=== PATIENT | female | born 1970 | race American Indian/Alaskan Native ===

== ENCOUNTER 2018-04-16 07:42 | Emergency (ER) | payer SELFPAY ==
--- NOTE | 2018-04-16 08:25 | C.PDOC ---
History Of Present Illness 47 year old female presents to the ED complaining of coughing with associated pleuritic chest pain radiating to her back ongoing for 4 days. She also notes fever of 102 last night. 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 She denies any sick contacts. She denies any SOB, nausea, vomiting, throat pain, ear pain, or any other symptoms. Time Seen by Provider: 04/16/18 07:45 Chief Complaint (Nursing): Cough, Cold, Congestion History Per: Patient History/Exam Limitations: no limitations Onset/Duration Of Symptoms: Days Current Symptoms Are (Timing): Still Present Sick Contacts (Context): None Associated Symptoms: Fever, Cough. denies: Sore Throat Past Medical History Reviewed: Historical Data, Nursing Documentation, Vital Signs Vital Signs: Last Vital Signs Temp 97.7 F 04/16/18 09:48 Pulse 74 04/16/18 09:48 Resp 20 04/16/18 09:48 BP 112/75 04/16/18 09:48 Pulse Ox 98 04/16/18 11:38 - Medical History PMH: Bronchitis Surgical History: Family History: States: No Known Family Hx - Social History Hx Alcohol Use: Yes Hx Substance Use: No - Immunization History Hx Tetanus Toxoid Vaccination: No Hx Influenza Vaccination: No Hx Pneumococcal Vaccination: No Review Of Systems Except As Marked, All Systems Reviewed And Found Negative. Constitutional: Positive for: Fever ENT: Negative for: Ear Pain, Throat Pain Cardiovascular: Positive for: Chest Pain Respiratory: Positive for: Cough. Negative for: Shortness of Breath Gastrointestinal: Negative for: Nausea, Vomiting Musculoskeletal: Positive for: Back Pain Physical Exam - Physical Exam Appears: Non-toxic, No Acute Distress Skin: Warm, Dry Head: Normacephalic Eye(s): bilateral: Normal Inspection, PERRL, EOMI Ear(s): Bilateral: Normal Nose: Normal Oral Mucosa: Moist Throat: Normal, No Erythema, No Exudate, No Drooling Neck: Supple Chest: Symmetrical Cardiovascular: Rhythm Regular, No Murmur Respiratory: Normal Breath Sounds, No Rales, No Rhonchi, No Wheezing Extremity: Normal ROM Extremity: Bilateral: Atraumatic Neurological/Psych: Oriented x3, Normal Speech Gait: Steady ED Course And Treatment ECG: Interpreted By Me, Viewed By Me ECG Rhythm: Sinus Rhythm ECG Interpretation: Normal Rate From EC O2 Sat by Pulse Oximetry: 98 (RA) Pulse Ox Interpretation: Normal - Other Rad CXR X-Ray: Viewed By Me, Read By Radiologist Interpretation: Accession No. : [id number]. Patient Name / ID : ANTONINA PADILLA / [id number]. Exam Date : 04/16/2018 08:34:08 ( Approved ). Study Comment : Sex / Age : F / 47Y. Creator : Omar Garcia MD. Dictator : Omar Garcia MD. Meter Reading Clerk : Research Lab Assistant : Omar Garcia MD. Approver2 : Report Date : 04/16/2018 11:44:57. My Comment : . Chest x- ray two views. History: Chest pain. Fever. Comparison: None available. Findings: Mild venous congestion. Bibasilar breast and nipple shadows. Biapical pleural thickening with upper lobe granulomatous changes. Heart size within normal limits. Degenerative changes in the spine. Impression: Mild venous congestion. Bibasilar breast and nipple shadows. Biapical pleural thickening with upper lobe granulomatous changes. Heart size within normal limits. Degenerative changes in the spine. Medical Decision Making Medical Decision Making: Orders: -CXR On revaluation, patient is resting comfortably, and is in no acute distress. Patient was instructed to follow up with PMD in 1-2 days for further evaluation. Patient given Rx for Zithromax, Claritin, and Prednisone. Disposition - Disposition Referrals: [facility] at [facility] [Outside] Disposition: HOME/ ROUTINE Disposition Time: 09:40 Condition: GOOD Additional Instructions: Follow up with the medical doctor within 1-2 days. return if worsened. Prescriptions: Azithromycin [Zithromax] 250 mg PO DAILY #4 tab Loratadine [Claritin] 10 mg PO DAILY #10 tab predniSONE [Prednisone] 10 mg PO BID #10 tab Instructions: Acute Bronchitis Forms: [employer] (Yi) - Clinical Impression Clinical Impression: Bronchitis - PA / WRINGER AND SETTER / Resident Statement MD/DO has reviewed & agrees with the documentation as recorded. - Scribe Statement The provider has reviewed the documentation as recorded by the Scribe Jacquelin Suero All medical record entries made by the Scribe were at my direction and personally dictated by me. I have reviewed the chart and agree that the record accurately reflects my personal performance of the history, physical exam, medical decision making, and the department course for this patient. I have also personally directed, reviewed, and agree with the discharge instructions and disposition.
[2018-04-16 09:49] VITALS: BP 112/75; PULSE 74; RESP 20; TEMP 97.7
[2018-04-16 10:02] VITALS: O2SAT 98
--- NOTE | 2018-04-16 11:46 | RAD ---
Chest x-ray two views History: Chest pain. Fever. Comparison: None available. Findings: Mild venous congestion. Bibasilar breast and nipple shadows. Biapical pleural thickening with upper lobe granulomatous changes. Heart size within normal limits. Degenerative changes in the spine. Impression: Mild venous congestion. Bibasilar breast and nipple shadows. Biapical pleural thickening with upper lobe granulomatous changes. Heart size within normal limits. Degenerative changes in the spine.
--- NOTE | 2018-04-17 12:36 | CARD ---
APPROVED REPORT Date of service: 04/16/2018 EKG Measurement Heart [id number] <Conclusion> Normal sinus rhythm Normal ECG
== END 2018-04-16 09:52 | disposition home or self-care (01) ==
LOC: C.ER 07:42
DX: J40 Bronchitis, not specified as acute or chronic (principal)

== ENCOUNTER 2018-05-22 17:55 | Emergency (ER) | payer SELFPAY ==
[2018-05-22 18:08] VITALS: BP 118/84; PULSE 79; RESP 18; TEMP 98.9; O2SAT 99
--- NOTE | 2018-05-22 18:51 | C.PDOC ---
History Of Present Illness 47 year old female presents to ED for evaluation of left hip pain s/p fall onto concrete floor at work 1 week ago. Patient reports numbness, tingling and prior lumbar X-ray. Reports taking Ibuprofen 800mg and Flexeril 10mg with no improvement. Notes she does not like how the medication makes her feel. Denies fever, nausea, vomiting, dizziness, and other associated symptoms. Time Seen by Provider: 05/22/18 18:13 Chief Complaint (Nursing): Lower Extremity Problem/Injury History Per: Patient History/Exam Limitations: no limitations Onset/Duration Of Symptoms: Days Current Symptoms Are (Timing): Still Present Past Medical History Reviewed: Historical Data, Nursing Documentation, Vital Signs Vital Signs: Last Vital Signs Temp 98.9 F 05/22/18 18:06 Pulse 79 05/22/18 18:06 Resp 18 05/22/18 19:04 BP 118/84 05/22/18 18:06 Pulse Ox 99 05/22/18 20:55 - Medical History PMH: Bronchitis Surgical History: Family History: States: Unknown Family Hx - Social History Hx Alcohol Use: Yes Hx Substance Use: No - Immunization History Hx Tetanus Toxoid Vaccination: No Hx Influenza Vaccination: No Hx Pneumococcal Vaccination: No Review Of Systems Constitutional: Negative for: Fever, Chills Gastrointestinal: Negative for: Nausea, Vomiting Musculoskeletal: Positive for: Other (left hip pain ) Neurological: Positive for: Weakness, Numbness Physical Exam - Physical Exam Appears: Non-toxic, No Acute Distress, Other (comfortable) Skin: Warm, Dry Head: Atraumatic, Normacephalic Chest: Symmetrical, No Deformity Cardiovascular: Rhythm Regular, No Murmur Respiratory: Normal Breath Sounds, No Rales, No Rhonchi, No Stridor Back: Paraspinal Tenderness (left lumbar) Extremity: Tenderness (To palpation on left lateral thigh. ), Capillary Refill ( less than 2 seconds), No Deformity, Other (No deficit or ecchymosis to the left hip. ) Neurological/Psych: Oriented x3, Normal Speech, Normal Motor, Normal Sensation Gait: Steady ED Course And Treatment O2 Sat by Pulse Oximetry: 99 (RA) Pulse Ox Interpretation: Normal Progress Note: Left Hip X-ray and Left Femur X-ray. Patient stable for discharge home. Prescribed Cyclobenzaprine and Ibuprofen. Advised to follow up with PMD as needed. Disposition - Disposition Disposition: HOME/ ROUTINE Disposition Time: 19:00 Condition: STABLE Additional Instructions: CONTINUE YOUR MEDICATIONS NEEDED FOLLOW UP WITH YOUR DOCTOR IN 1-2 DAYS HAVE OUTPATIENT MRI OF YOUR LUMBAR SPINE IF SYMPTOMS PERSIST RETURN TO ER IF SYMPTOMS WORSEN Instructions: Radiculopathy (DC) Forms: [employer] (Hebrew) Print Language: [place] - POA Present On Arrival: None - Clinical Impression Clinical Impression: Lumbar radiculopathy, Contusion, thigh - Scribe Statement The provider has reviewed the documentation as recorded by the Scribe (Genet Lizarraga) Provider Attestation: All medical record entries made by the Scribe were at my direction and personally dictated by me. I have reviewed the chart and agree that the record accurately reflects my personal performance of the history, physical exam, medical decision making, and the department course for this patient. I have also personally directed, reviewed, and agree with the discharge instructions and disposition.
--- NOTE | 2018-05-23 08:13 | RAD ---
Date of service: 05/22/2018 PROCEDURE: LEFT HIP WITH PELVIS RADIOGRAPHS HISTORY: LEFT HIP PAIN AFTER FALL COMPARISON: None available. TECHNIQUE: Frontal views of the pelvis and bilateral hips of been submitted with frog-leg lateral view left hip joint. FINDINGS: Pelvic ring appears intact without fracture as well as the left hip joint. No dislocation of the left hip joint. No destructive bony lesion throughout left hip joint and pelvic ring. Pubic symphysis appears intact. Limited degenerative changes seen the bilateral sacroiliac and hip joints symmetrically. A bone island is identified at the right superior pubic ramus proximally. IMPRESSION: No acute fracture or dislocation left hip joint. No fracture throughout the pelvic ring. Degenerative changes bilateral sacroiliac and hip joint.
--- NOTE | 2018-05-23 08:14 | RAD ---
Date of service: 05/22/2018 PROCEDURE: Left Femur Radiographs. HISTORY: LEFT FEMUR PAIN AFTER FALL COMPARISON: None. TECHNIQUE: AP and Lateral Radiographs of the left femur. FINDINGS: FEMUR: No acute fracture or destructive bony lesion identified. SOFT TISSUES: Normal. OTHER FINDINGS: None. IMPRESSION: Unremarkable radiographs of the left femur.
== END 2018-05-22 19:05 | disposition home or self-care (01) ==
LOC: C.ER 17:55
DX: M54.16 Radiculopathy, lumbar region (principal); S70.12XA Contusion of left thigh, initial encounter; W18.30XA Fall on same level, unspecified, initial encounter; Y92.89 Other specified places as the place of occurrence of the external cause; Y99.0 Civilian activity done for income or pay

== ENCOUNTER 2018-11-16 17:21 | Emergency (ER) | payer MEDICAID ==
[2018-11-16 17:28] VITALS: BMI 36.1
[2018-11-16 17:31] VITALS: TEMP 98.2
--- NOTE | 2018-11-16 18:24 | C.PDOC ---
History Of Present Illness 48 y/o female, with family history of DVTs, comes in to ED complaining of right lower leg swelling, right knee pain, and right hip pain x2 weeks. She denies any trauma to the area and states that one day she just noticed that her right knee was painful in the back. She admits to occasional swelling at night, as well as cramping of the leg. States the pain starts at the hip and radiates down to the knee and lower leg. Denies recent travel or sedentary lifestyle. She rates the pain 7/10. Patient reports she took aleve and tylenol in the past with little improvement. She denies any fever, chills, SOB, or chest pain. Chief Complaint (Nursing): Lower Extremity Problem/Injury History Per: Patient History/Exam Limitations: no limitations Onset/Duration Of Symptoms: Days Current Symptoms Are (Timing): Still Present Past Medical History Reviewed: Historical Data, Nursing Documentation, Vital Signs Vital Signs: Last Vital Signs Temp 98.2 F 11/16/18 17:28 Pulse 69 11/16/18 17:28 Resp 18 11/16/18 17:28 BP 128/86 11/16/18 17:28 Pulse Ox 98 11/16/18 17:28 - Medical History PMH: Bronchitis Surgical History: Family History: States: Other - Social History Hx Alcohol Use: No Hx Substance Use: No - Immunization History Hx Tetanus Toxoid Vaccination: No Hx Influenza Vaccination: No Hx Pneumococcal Vaccination: No Review Of Systems Constitutional: Negative for: Fever, Chills Cardiovascular: Negative for: Chest Pain Respiratory: Negative for: Cough, Shortness of Breath Gastrointestinal: Negative for: Nausea, Vomiting, Abdominal Pain, Diarrhea Genitourinary: Negative for: Dysuria Musculoskeletal: Positive for: Other (Right lower leg swelling, right knee pain, and right hip pain) Skin: Negative for: Rash Neurological: Negative for: Weakness, Numbness Physical Exam - Physical Exam Appears: Non-toxic, No Acute Distress Skin: Warm, Dry Head: Atraumatic, Normacephalic Eye(s): bilateral: Normal Inspection, PERRL Oral Mucosa: Moist Neck: Supple Chest: Symmetrical Cardiovascular: Rhythm Regular, No Murmur Respiratory: Normal Breath Sounds, No Rales, No Rhonchi, No Wheezing Gastrointestinal/Abdominal: Soft, No Tenderness Extremity: Normal ROM (of all joints of right leg), No Pedal Edema, Capillary Refill (less than 2 seconds), Other (right knee slightly edematous, no erythema, neurovascularly intact) Extremity: Bilateral: Atraumatic Pulses: Left Dorsalis Pedis: Normal, Right Dorsalis Pedis: Normal Neurological/Psych: Oriented x3, Normal Speech, Normal Motor, Normal Sensation Gait: Steady ED Course And Treatment - Laboratory Results Result Diagrams: 11/16/18 18:58 11/16/18 18:58 O2 Sat by Pulse Oximetry: 98 (RA) Pulse Ox Interpretation: Normal Medical Decision Making Medical Decision Making: Plan: --Labs --Knee XR --Hip XR --Venous Duplex Scan --Tylenol PO Doppler neg, XR unremarkable. Reports not dictated as of yet by radiologist. Discussed case with Dr. Guerrero and agrees patient could be discharged based on preliminary results. Patient will follow up with her PMD in 1-2 days. Patient will continue naproxen twice a day and was advised to return to ED if symptoms worsen. Patient verbalizes understanding and is in agreement with plan. Patient is stable for discharge. Disposition Counseled Patient/Family Regarding: Studies Performed, Diagnosis, Need For Followup, Rx Given - Disposition Referrals: [facility] [Outside] Disposition: HOME/ ROUTINE Disposition Time: 20:24 Condition: STABLE Additional Instructions: VALERIE SARKAR, thank you for letting us take care of you today. Your provider was Mark Norton/Timothy Vizcarra and you were treated for Leg Pain. The emergency medical care you received today was directed at your acute symptoms. If you were prescribed any medication, please fill it and take as directed. It may take several days for your symptoms to resolve. Return to the Emergency Department if your symptoms worsen, do not improve, or if you have any other problems. Please contact your doctor or call one of the physicians/clinics you have been referred to that are listed on the Patient Visit Information form that is included in your discharge packet. Bring any paperwork you were given at discharge with you along with any medications you are taking to your follow up visit. Our treatment cannot replace ongoing medical care by a primary care provider outside of the emergency department. Thank you for allowing the [facility] team to be part of your care today. If you had an X-Ray or CT scan: A Radiologist will review the ED reading if any change in treatment is needed we will contact you. Prescriptions: Naproxen [Naprosyn] 500 mg PO BID #30 tablet Instructions: Muscle Strain (DC), Knee Pain (DC), Joint Pain Forms: [employer] (Chinese) - Clinical Impression Clinical Impression: Knee pain, right, Right hip pain, Muscle strain - PA / EMERGENCY DEPARTMENT RN / Resident Statement MD/DO has reviewed & agrees with the documentation as recorded. - Scribe Statement The provider has reviewed the documentation as recorded by the Scribtani Baker All medical record entries made by the Julioibtani were at my direction and personally dictated by me. I have reviewed the chart and agree that the record accurately reflects my personal performance of the history, physical exam, medical decision making, and the department course for this patient. I have also personally directed, reviewed, and agree with the discharge instructions and disposition.
[2018-11-16 19:05] LABS: BASO % 0.7 % (0.0-2.0); EOS # 0.1 K/uL (0.0-0.7); EOS % 0.9 % (0.0-4.0); HEMOGLOBIN 11.8 g/dL (11.0-16.0); LYMPH # 2.3 K/uL (1.0-4.3); LYMPH % 40.2 % (20.0-40.0); MEAN CELL VOLUME 87.2 fL (81.0-99.0); MEAN CORPUSCULAR HEMOGLOBIN 27.6 pg (27.0-31.0); MEAN CORPUSCULAR HGB CONC 31.6 g/dL (33.0-37.0); MEAN PLATELET VOLUME 8.5 fL (7.2-11.7); MONO # 0.4 K/uL (0.0-0.8); MONO % 6.4 % (0.0-10.0); NEUT % 51.8 % (50.0-75.0); NRBC % 0.1 % (0.0-2.0); RBC 4.28 Mil/uL (3.80-5.20); RED CELL DISTRIBUTION WIDTH 15.6 % (11.5-14.5); WHITE BLOOD COUNT 5.8 K/uL (4.8-10.8)
[2018-11-16 19:18] LABS: ALB/GLOB RATIO 1.3 (1.0-2.1); BLOOD UREA NITROGEN 13 mg/dL (7-17); CALCIUM 9.2 mg/dl (8.6-10.4); GFR NON-AFRICAN AMERICAN > 60
[2018-11-16 19:19] LABS: INR 1.1; PROTHROMBIN TIME 11.6 SECONDS (9.7-12.2)
[2018-11-16 19:21] LABS: ALT/SGPT 21 U/L (9-52); AST/SGOT 34 U/L (14-36)
[2018-11-16 20:42] VITALS: BP 116/77; PULSE 99; RESP 16
[2018-11-16 20:53] VITALS: O2SAT 98
--- NOTE | 2018-11-16 21:28 | RAD ---
Pelvis and right hip two views HISTORY: Hip pain. Comparison: None available. Findings: Mild narrowing of the bilateral hip joints with subchondral sclerosis. No evidence for acute displaced fracture or dislocation. Productive change at the iliac crests. 1.6 centimeters sclerotic foci seen at the junction of the right posterior superior pubic bone and acetabulum which may represent a prominent bone island. Calcified phleboliths in the pelvis. Impression: Degenerative changes. If pain persists, consider correlation with MRI.
--- NOTE | 2018-11-16 21:57 | RAD ---
Right knee three views HISTORY: Knee pain. Comparison: None available. Findings: Moderate medial compartment joint space narrowing. Mild patellofemoral compartment joint space narrowing. No significant suprapatellar joint effusion. Small rounded ossific density seen adjacent to the tibial spines which may represent a small loose osteochondral body. Impression: Moderate medial compartment joint space narrowing. Mild patellofemoral compartment joint space narrowing. No significant suprapatellar joint effusion. Small rounded ossific density seen adjacent to the tibial spines which may represent a small loose osteochondral body. If pain persists, consider correlation with MRI.
--- NOTE | 2018-11-18 10:08 | VASCLAB ---
Date of service: 11/16/2018 PROCEDURE: Right Lower Extremity Venous Duplex Exam. HISTORY: Leg pain r/o dvt PRIORS: None. TECHNIQUE: Right common femoral, femoral, popliteal and posterior tibial, peroneal and great saphenous veins were evaluated. Flow was assessed with color Doppler, compressibility, assessment of phasic flow and augmentation response. Report prepared by SANJUANITA Moore FINDINGS: RIGHT: 1. Common Femoral Vein: 1.1. Compressibility - Fully compressible: Thrombus - None: Flow - Phasic: Augmentation -Normal: Reflux - None. 2. Femoral Vein: (proximal-mid) 2.1. Compressibility - Fully compressible: Thrombus - None: Flow - Phasic: Augmentation -Normal: Reflux - None. 3. Popliteal Vein: 3.1. Compressibility - Fully compressible: Thrombus - None: Flow - Phasic: Augmentation -Normal: Reflux - None. 4. Posterior Tibial Vein: 4.1. Compressibility - Fully compressible: Thrombus - None: Flow - Phasic: Augmentation -Normal: Reflux - None. 5. Peroneal Vein: 5.1. Compressibility - Fully compressible: Thrombus - None: Flow - Phasic: Augmentation -Normal: Reflux - None. 6. Great Saphenous Vein: 6.1. Compressibility - Fully compressible: Thrombus -None: Flow - Phasic: Augmentation - Normal: Reflux - None. OTHER FINDINGS: Normal venous flow noted in the left common femoral vein. IMPRESSION: No evidence of deep or superficial vein thrombosis of the right lower extremity with excellent venous flow. Normal valve function noted of the right side.
== END 2018-11-16 20:41 | disposition home or self-care (01) ==
LOC: C.ER 17:21
DX: M25.561 Pain in right knee (principal); M25.551 Pain in right hip; T14.8XXA Other injury of unspecified body region, initial encounter; X58.XXXA Exposure to other specified factors, initial encounter